=== PATIENT | male | born 1980 | race African-American/Black ===

== ENCOUNTER 2016-11-13 19:18 | Emergency (ER) | payer MEDICAID ==
[2016-11-13 20:11] VITALS: BP 139/86; PULSE 83; RESP 18; TEMP 100
[2016-11-13] MEDS ORDERED: ONDANSETRON ODT 8 MG TAB.RAPDIS PO STA (20:38)
[2016-11-13] MEDS ORDERED: DIPHENOX-ATROP STARTER PACK 8 TAB BTL PO STA (20:39)
[2016-11-13] MEDS ORDERED: DIPHENOX-ATROP 2.5-0.025 MG 1 EACH TAB PO STA (20:39)
[2016-11-13] MEDS ORDERED: ACETAMINOPHEN TAB 500 MG TAB PO STA (20:40)
--- NOTE | 2016-11-13 20:40 | ED ---
General Adult HPI - General Chief complaint: Nausea/Vomiting/Diarrhea Stated complaint: Vomiting Time Seen by Provider: 11/13/16 20:00 Source: patient, RN notes reviewed Mode of arrival: ambulatory - History of Present Illness Initial comments: This is a 36-year-old male who presents to the emergency department complaining of vomiting and diarrhea. Patient states he was nauseous all day and did have a few bouts of diarrhea however this evening he vomited times one and decided to come to the emergency department to be evaluated. Patient denies any abdominal pain. Patient denies any fever or chills. Patient denies any previous abdominal surgeries. Patient denies any chest pain difficult breathing shortness of breath. Patient denies any headache patient denies numbness weakness. Patient denies any lightheadedness dizziness or near syncopal episode. - Related Data Previous Rx's Medication Instructions Recorded Dicyclomine HCl [Bentyl] 20 mg PO QID PRN #15 tab 05/08/16 Ondansetron Odt [Zofran Odt] 4 mg PO Q6HR PRN #10 tab 11/13/16 Allergies Allergy/AdvReac Type Severity Reaction Status Date / Time No Known Allergies Allergy Verified 11/13/16 20:11 Review of Systems ROS Statement: Those systems with pertinent positive or pertinent negative responses have been documented in the HPI. ROS Other: All systems not noted in ROS Statement are negative. Past Medical History Past Medical History: No Reported History History of Any Multi-Drug Resistant Organisms: None Reported Past Surgical History: No Surgical Hx Reported Past Psychological History: No Psychological Hx Reported Smoking Status: Never smoker Past Alcohol Use History: Occasional Past Drug Use History: None Reported General Exam - General Exam Comments Initial Comments: GENERAL: Patient is well-developed and well-nourished. Patient is nontoxic and well- hydrated and is in mild distress. ENT: Neck is soft and supple. No significant lymphadenopathy is noted. Oropharynx is clear. Moist mucous membranes. Neck has full range of motion without eliciting any pain. EYES: The sclera were anicteric and conjunctiva were pink and moist. Extraocular movements were intact and pupils were equal round and reactive to light. Eyelids were unremarkable. PULMONARY: Unlabored respirations. Good breath sounds bilaterally. No audible rales rhonchi or wheezing was noted. CARDIOVASCULAR: There is a regular rate and rhythm without any murmurs gallops or rubs. ABDOMEN: Soft and nontender with normal bowel sounds. No palpable organomegaly was noted. There is no palpable pulsatile mass. SKIN: Skin is clear with no lesions or rashes and otherwise unremarkable. NEUROLOGIC: Patient is alert and oriented x3. Cranial nerves II through XII are grossly intact. Motor and sensory are also intact. Normal speech, volume and content. Symmetrical smile. MUSCULOSKELETAL: Normal extremities with adequate strength and full range of motion. No lower extremity swelling or edema. No calf tenderness. LYMPHATICS: No significant lymphadenopathy is noted PSYCHIATRIC: Normal psychiatric evaluation. Normal interpersonal interactions appears functionally intact in deals appropriately with others. No signs of depression. Course Vital Signs 11/13/16 20:08 Temperature 100 F H Pulse Rate 83 Respiratory 18 Rate Blood Pressure 139/86 O2 Sat by Pulse 98 Oximetry Disposition Clinical Impression: Gastroenteritis Disposition: HOME SELF-CARE Condition: Good Instructions: Gastroenteritis (ED) Prescriptions: Ondansetron Odt [Zofran Odt] 4 mg PO Q6HR PRN #10 tab PRN Reason: Nausea And Vomiting Referrals: Jewel Edward MD [Primary Care Provider] - 1-2 days Time of Disposition: 20:42
[2016-11-13] MEDS ORDERED: ONDANSETRON 4 MG ODT STARTER PACK 2 TAB BTL PO ONE (20:45)
== END 2016-11-13 21:18 | disposition home or self-care (01) ==
LOC: EC 19:18
DX: K52.9 Noninfective gastroenteritis and colitis, unspecified (principal)
CPT/HCPCS: 99283; S0119

== ENCOUNTER 2017-12-06 09:11 | Emergency (ER) | payer MEDICAID, OTHER ==
[2017-12-06 09:14] VITALS: BP 175/81; PULSE 75; RESP 16; TEMP 98.2
--- NOTE | 2017-12-06 09:28 | ED ---
General Adult HPI - General Chief complaint: Recheck/Abnormal Lab/Rx Stated complaint: hands numb and tingling Time Seen by Provider: 12/06/17 09:16 Source: patient Mode of arrival: ambulatory Limitations: no limitations - History of Present Illness Initial comments: This is a 37 year old male who presents with bilateral hand and wrist tingling that began today. The patient states he woke up with both hands red, swollen and tingling. The redness and swelling resolved after showering. However, the patient states that his wrists make a "popping" noise when he bends them, and the tingling sensation recurs. He denies pain or other symptoms at rest, and has never had these symptoms in the past. Patient states that he just switched physicians at work. 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 - Related Data Previous Rx's Medication Instructions Recorded predniSONE 50 mg PO DAILY #5 tab 12/06/17 Allergies Allergy/AdvReac Type Severity Reaction Status Date / Time No Known Allergies Allergy Verified 12/06/17 09:18 Review of Systems ROS Statement: Those systems with pertinent positive or pertinent negative responses have been documented in the HPI. ROS Other: All systems not noted in ROS Statement are negative. Past Medical History Past Medical History: No Reported History History of Any Multi-Drug Resistant Organisms: None Reported Past Surgical History: No Surgical Hx Reported Past Psychological History: No Psychological Hx Reported Smoking Status: Never smoker Past Alcohol Use History: Occasional Past Drug Use History: None Reported General Exam Limitations: no limitations General appearance: alert, in no apparent distress Head exam: Present: atraumatic, normocephalic, normal inspection Respiratory exam: Present: normal lung sounds bilaterally. Absent: respiratory distress, wheezes, rales, rhonchi, stridor Cardiovascular Exam: Present: regular rate, normal rhythm, normal heart sounds. Absent: systolic murmur, diastolic murmur, rubs, gallop, clicks Extremities exam: Present: full ROM, other (No edema is noted in bilateral wrists. Positive Tinel sign bilaterally. Negative Phalen. Patient reports subjective paresthesias to digits one through 3) Neurological exam: Present: alert, oriented X3, CN II-XII intact Psychiatric exam: Present: normal affect, normal mood Skin exam: Present: warm, dry, intact, normal color. Absent: rash Course Vital Signs 12/06/17 09:12 Temperature 98.2 F Pulse Rate 75 Respiratory 16 Rate Blood Pressure 175/81 O2 Sat by Pulse 100 Oximetry Medical Decision Making - Medical Decision Making 29-year-old male present emergency from for bilateral hand pain, numbness and tingling. Patient symptoms are consistent with carpal tunnel. Patient recently switched jobs at work most likely causing his symptoms. Patient states he does have splints at home and which she'll wear. Patient was given a short course of steroids as he states he's been taking ibuprofen daily. Patient will follow-up with orthopedics if no improvement return for any worsening symptoms. Disposition Clinical Impression: Carpal tunnel syndrome Disposition: HOME SELF-CARE Condition: Stable Instructions: Cubital Tunnel Syndrome (ED), Paresthesia (ED) Additional Instructions: Please return to the Emergency Department if symptoms worsen or any other concerns. Prescriptions: predniSONE 50 mg PO DAILY #5 tab Referrals: None,Stated [Primary Care Provider] - 1-2 days Ketan Choudhury MD [STAFF PHYSICIAN] - 1-2 days Time of Disposition: 09:40
== END 2017-12-06 09:45 | disposition home or self-care (01) ==
LOC: EC 09:11
DX: G56.03 Carpal tunnel syndrome, bilateral upper limbs (principal)
CPT/HCPCS: 99283

== ENCOUNTER 2017-12-23 05:50 | Emergency (ER) | payer SELFPAY ==
[2017-12-23 05:59] VITALS: BP 159/93; PULSE 76; RESP 16; TEMP 97.6
[2017-12-23] MEDS ORDERED: KETOROLAC 60 MG/2 ML VIAL IM STA (06:10)
--- NOTE | 2017-12-23 06:16 | ED ---
General Adult HPI - General Chief complaint: Extremity Problem,Nontraumatic Stated complaint: hand numbness Time Seen by Provider: 12/23/17 06:00 Source: patient, RN notes reviewed Mode of arrival: ambulatory Limitations: no limitations - History of Present Illness Initial comments: This is a 37-year-old male who presents emergency department for the second time complaining of numbness and weakness in his hands bilaterally. Patient states she's always had a little bit of this but now that he started a job where he has a lot of repetitive motion with his hands is gotten considerably worse. Patient states last time he was here he was given some steroids and that seemed to improve his symptoms. 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 Patient states he's got tingling in his middle digit in both hands. Patient also states he has a difficult time gripping things. - Related Data Previous Rx's Medication Instructions Recorded predniSONE 50 mg PO DAILY #5 tab 12/06/17 Ibuprofen [Motrin] 800 mg PO Q6HR #20 tab 12/23/17 Allergies Allergy/AdvReac Type Severity Reaction Status Date / Time No Known Allergies Allergy Verified 12/23/17 05:59 Review of Systems ROS Statement: Those systems with pertinent positive or pertinent negative responses have been documented in the HPI. ROS Other: All systems not noted in ROS Statement are negative. Past Medical History Past Medical History: No Reported History Additional Past Medical History / Comment(s): carpal tunnel History of Any Multi-Drug Resistant Organisms: None Reported Past Surgical History: No Surgical Hx Reported Past Psychological History: No Psychological Hx Reported Smoking Status: Never smoker Past Alcohol Use History: Occasional Past Drug Use History: None Reported General Exam Limitations: no limitations Course Vital Signs 12/23/17 05:56 Temperature 97.6 F Pulse Rate 76 Respiratory 16 Rate Blood Pressure 159/93 O2 Sat by Pulse 100 Oximetry Disposition Clinical Impression: Carpal tunnel syndrome Disposition: HOME SELF-CARE Condition: Good Instructions: Paresthesia (ED) Prescriptions: Ibuprofen [Motrin] 800 mg PO Q6HR #20 tab Referrals: Ketan Choudhury MD [STAFF PHYSICIAN] - 1-2 days Time of Disposition: 06:15
--- NOTE | 2017-12-25 07:38 | CDI ---
Documentation Clarification OP Dear Nicholas BATES MD Please do addendum to ED report for Physical exam and MDM. Thank you, Pita Calderon Shearing Supervisor If you have any question, Please contact inspection manager at [phone] [facility]
== END 2017-12-23 06:28 | disposition home or self-care (01) ==
LOC: EC 05:50
DX: G56.03 Carpal tunnel syndrome, bilateral upper limbs (principal)
CPT/HCPCS: 99283; 96372; J1885

== ENCOUNTER 2018-04-07 05:44 | Emergency (ER) | payer OTHER ==
[2018-04-07] MEDS ORDERED: hydrALAZINE HCL 20 MG/ML 1 ML VIAL IVP STA (05:58)
--- NOTE | 2018-04-07 06:01 | ED ---
General Adult HPI - General Source: patient, RN notes reviewed Mode of arrival: ambulatory Limitations: no limitations <Nicholas Cesar - Last Filed: 04/07/18 06:56> <Gunnar Vasquez - Last Filed: 04/07/18 08:38> - General Chief complaint: Weakness Stated complaint: Fever Time Seen by Provider: 04/07/18 05:45 - History of Present Illness Initial comments: This is a 37-year-old male who presents emergency Department stating all weekend he is filled week. Patient states is mostly time lying in bed. Patient states he had some crusting to both eyes. Patient states he had no pain denies any chest pain difficulty breathing shortness of breath or cough. Patient denies any fever but states he did break out in a sweat a few times and was chilled on multiple occasions. Patient denies any abdominal pain. Patient denies any nausea vomiting or diarrhea. Patient states he has no history of high blood pressure. Patient denies any headache patient denies any numbness or focal weakness. Patient denies any lightheadedness dizziness or near syncopal episode. Patient patient's main complaint is he just doesn't feel good and he is here to get checked out he denies any pain at all (Nicholas Cesar) - Related Data Home Medications Medication Instructions Recorded Confirmed Ibuprofen [Motrin] 800 mg PO Q8H PRN 04/07/18 04/07/18 diphenhydrAMINE HCL [Benadryl] 25 mg PO HS PRN 04/07/18 04/07/18 Previous Rx's Medication Instructions Recorded Amoxicillin/Potassium Clav 1 tab PO Q12HR #20 tab 04/07/18 [Augmentin 875-125 Tablet] Loratadine [Claritin] 10 mg PO DAILY #30 tab 04/07/18 Allergies Allergy/AdvReac Type Severity Reaction Status Date / Time No Known Allergies Allergy Verified 04/07/18 07:59 Review of Systems ROS Other: All systems not noted in ROS Statement are negative. <Nicholas Cesar - Last Filed: 04/07/18 06:56> ROS Other: All systems not noted in ROS Statement are negative. <Gunnar Vasquez - Last Filed: 04/07/18 08:38> ROS Statement: Those systems with pertinent positive or pertinent negative responses have been documented in the HPI. Past Medical History Past Medical History: No Reported History Additional Past Medical History / Comment(s): carpal tunnel History of Any Multi-Drug Resistant Organisms: None Reported Past Surgical History: No Surgical Hx Reported Past Psychological History: No Psychological Hx Reported Smoking Status: Never smoker Past Alcohol Use History: None Reported Past Drug Use History: None Reported <Nicholas Cesar - Last Filed: 04/07/18 06:56> General Exam Limitations: no limitations <Nicholas Cesar - Last Filed: 04/07/18 06:56> <Gunnar Vasquez - Last Filed: 04/07/18 08:38> - General Exam Comments Initial Comments: GENERAL: Patient is well-developed and well-nourished. Patient is nontoxic and well- hydrated and is in mild distress. ENT: Neck is soft and supple. No significant lymphadenopathy is noted. Oropharynx is clear. Moist mucous membranes. Neck has full range of motion without eliciting any pain. EYES: The sclera were anicteric and conjunctiva were pink and moist. Extraocular movements were intact and pupils were equal round and reactive to light. Eyelids were unremarkable. PULMONARY: Slight expiratory wheeze on the right lung CARDIOVASCULAR: There is a regular rate and rhythm without any murmurs gallops or rubs. ABDOMEN: Soft and nontender with normal bowel sounds. No palpable organomegaly was noted. There is no palpable pulsatile mass. SKIN: Skin is clear with no lesions or rashes and otherwise unremarkable. NEUROLOGIC: Patient is alert and oriented x3. Cranial nerves II through XII are grossly intact. Motor and sensory are also intact. Normal speech, volume and content. Symmetrical smile. MUSCULOSKELETAL: Normal extremities with adequate strength and full range of motion. No lower extremity swelling or edema. No calf tenderness. LYMPHATICS: No significant lymphadenopathy is noted PSYCHIATRIC: Normal psychiatric evaluation. Normal interpersonal interactions appears functionally intact in deals appropriately with others. No signs of depression. No signs of anxiety. (Nicholas Cesar) Vital Signs 04/07/18 04/07/18 04/07/18 05:48 06:10 07:24 Temperature 98.2 F Pulse Rate 84 81 83 Respiratory 18 18 18 Rate Blood Pressure 161/115 144/68 161/77 O2 Sat by Pulse 97 100 97 Oximetry 04/07/18 08:21 Temperature Pulse Rate 83 Respiratory 18 Rate Blood Pressure 156/88 O2 Sat by Pulse 98 Oximetry EKG Findings - EKG Comments: EKG Findings:: EKG: Normal sinus rhythm rate of 78, MD interval 146, QRS duration 96, QTC 453 <Gunnar Vasquez - Last Filed: 04/07/18 08:38> Medical Decision Making - Lab Data Result diagrams: 04/07/18 06:05 04/07/18 06:05 <Nicholas Cesar - Last Filed: 04/07/18 06:56> - Lab Data Result diagrams: 04/07/18 06:05 04/07/18 06:05 <Gunnar Vasquez - Last Filed: 04/07/18 08:38> - Medical Decision Making EKG shows normal sinus rhythm at 70 bpm MD interval is 146 QRS is 88 QT interval 44 QTC is 460. Patient's EKG shows no ST segment elevation or depression or T wave abnormalities are noted. Dr. Vasquez will be taking over the care of this patient at 7 AM (Nicholas Cesar) 37-year-old male presenting for evaluation of generalized weakness, subjective chills, he did have some rhinorrhea and postnasal drip. Patient initially felt this was just his sinuses however he states he continued to feel well over the weekend. His presenting for evaluation today. Vital signs are stable, patient is overall well-appearing. Workup is obtained, chest x-ray negative for any focal pneumonia or acute findings. Normal CBC, d-dimer is 0.37. Troponin 0.014. This is technically within the normal range however it is not 0 as would be expected. This lab abnormality is reviewed with the patient. Patient does not have insurance and he does not want any further testing. He declines observation for serial cardiac enzymes, echo and cardiology consultation. He has not had any chest pain or dyspnea. He will follow-up on this as an outpatient. He prefers to just be treated for his sinus symptoms. (Gunnar Vasquez) - Lab Data Lab Results 04/07/18 04/07/18 04/07/18 Range/Units 06:05 06:05 06:05 WBC 4.7 (3.8-10.6) k/uL RBC 5.26 (4.30-5.90) m/uL Hgb 14.9 (13.0-17.5) gm/dL Hct 44.6 (39.0-53.0) % MCV 84.8 (80.0-100.0) fL MCH 28.3 (25.0-35.0) pg MCHC 33.4 (31.0-37.0) g/dL RDW 13.3 (11.5-15.5) % Plt Count 191 (150-450) k/uL Neutrophils % (Manual) 39 % Lymphocytes % (Manual) 46 % Monocytes % (Manual) 14 % Eosinophils % (Manual) 2 % Neutrophils # (Manual) 1.83 (1.3-7.7) k/uL Lymphocytes # (Manual) 2.16 (1.0-4.8) k/uL Monocytes # (Manual) 0.66 (0-1.0) k/uL Eosinophils # (Manual) 0.09 (0-0.7) k/uL Nucleated RBCs 0 (0-0) /100 WBC RBC Morphology Normal D-Dimer (<0.60) mg/L FEU Sodium 142 (137-145) mmol/L Potassium 3.9 (3.5-5.1) mmol/L Chloride 105 (98-107) mmol/L Carbon Dioxide 27 (22-30) mmol/L Anion Gap 10 mmol/L BUN 19 (9-20) mg/dL Creatinine 1.20 (0.66-1.25) mg/dL Est GFR (CKD-EPI)AfAm 88 (>60 ml/min/1.73 sqM) Est GFR (CKD-EPI)NonAf 76 (>60 ml/min/1.73 sqM) Glucose 105 H (74-99) mg/dL Calcium 9.1 (8.4-10.2) mg/dL Total Bilirubin 0.5 (0.2-1.3) mg/dL AST 45 (17-59) U/L ALT 60 (21-72) U/L Alkaline Phosphatase 53 (38-126) U/L Troponin I 0.014 (0.000-0.034) ng/mL Total Protein 7.1 (6.3-8.2) g/dL Albumin 4.3 (3.5-5.0) g/dL 04/07/18 Range/Units 06:05 WBC (3.8-10.6) k/uL RBC (4.30-5.90) m/uL Hgb (13.0-17.5) gm/dL Hct (39.0-53.0) % MCV (80.0-100.0) fL MCH (25.0-35.0) pg MCHC (31.0-37.0) g/dL RDW (11.5-15.5) % Plt Count (150-450) k/uL Neutrophils % (Manual) % Lymphocytes % (Manual) % Monocytes % (Manual) % Eosinophils % (Manual) % Neutrophils # (Manual) (1.3-7.7) k/uL Lymphocytes # (Manual) (1.0-4.8) k/uL Monocytes # (Manual) (0-1.0) k/uL Eosinophils # (Manual) (0-0.7) k/uL Nucleated RBCs (0-0) /100 WBC RBC Morphology D-Dimer 0.37 (<0.60) mg/L FEU Sodium (137-145) mmol/L Potassium (3.5-5.1) mmol/L Chloride (98-107) mmol/L Carbon Dioxide (22-30) mmol/L Anion Gap mmol/L BUN (9-20) mg/dL Creatinine (0.66-1.25) mg/dL Est GFR (CKD-EPI)AfAm (>60 ml/min/1.73 sqM) Est GFR (CKD-EPI)NonAf (>60 ml/min/1.73 sqM) Glucose (74-99) mg/dL Calcium (8.4-10.2) mg/dL Total Bilirubin (0.2-1.3) mg/dL AST (17-59) U/L ALT (21-72) U/L Alkaline Phosphatase (38-126) U/L Troponin I (0.000-0.034) ng/mL Total Protein (6.3-8.2) g/dL Albumin (3.5-5.0) g/dL Disposition <Nicholas Cesar - Last Filed: 04/07/18 06:56> Is patient prescribed a controlled substance at d/c from ED?: No Time of Disposition: 08:38 <Gunnar Vasquez - Last Filed: 04/07/18 08:38> Clinical Impression: Sinusitis Disposition: HOME SELF-CARE Condition: Good Instructions: Sinusitis (ED) Prescriptions: Amoxicillin/Potassium Clav [Augmentin 875-125 Tablet] 1 tab PO Q12HR #20 tab Loratadine [Claritin] 10 mg PO DAILY #30 tab Referrals: Jewel Edward MD [Primary Care Provider] - 1-2 days
[2018-04-07 06:27] LABS: HCT 44.6 % (39.0-53.0); HGB 14.9 gm/dL (13.0-17.5); MCH 28.3 pg (25.0-35.0); MCHC 33.4 g/dL (31.0-37.0); MCV 84.8 fL (80.0-100.0); Mean Platelet Volume 7.2; Platelet Count 191 k/uL (150-450); RBC 5.26 m/uL (4.30-5.90); RDW 13.3 % (11.5-15.5); WBC 4.7 k/uL (3.8-10.6)
[2018-04-07 06:29] LABS: Albumin 4.3 g/dL (3.5-5.0); Calcium 9.1 mg/dL (8.4-10.2); Potassium 3.9 mmol/L (3.5-5.1); Total Bilirubin 0.5 mg/dL (0.2-1.3); Total Protein 7.1 g/dL (6.3-8.2)
[2018-04-07 06:46] LABS: Eosinophils # (M) 0.09 k/uL (0-0.7); Lymphocytes # (M) 2.16 k/uL (1.0-4.8); Monocytes # (M) 0.66 k/uL (0-1.0); Neutrophils # (M) 1.83 k/uL (1.3-7.7); Neutrophils % (M) 39 %; Nucleated Red Blood Cells 0 /100 WBC (0-0); Total Cells Counted 200
--- NOTE | 2018-04-07 07:08 | XR ---
EXAM: XR Chest, 2 Views CLINICAL HISTORY: ITS.REASON XR Reason: Difficulty breathing TECHNIQUE: Frontal and lateral views of the chest. COMPARISON: None. FINDINGS: Lungs: Unremarkable. The lungs are clear. Pleural space: Unremarkable. No pneumothorax. Heart: Unremarkable. No cardiomegaly. Mediastinum: Unremarkable. Bones/joints: Unremarkable. IMPRESSION: Normal chest x-rays.
[2018-04-07 07:24] VITALS: PULSE 83
[2018-04-07 08:48] VITALS: BP 158/94; RESP 16; TEMP 98.1
== END 2018-04-07 08:50 | disposition home or self-care (01) ==
LOC: EC 05:44
DX: J32.9 Chronic sinusitis, unspecified (principal); Z53.29 Procedure and treatment not carried out because of patient's decision for other reasons; Z53.8 Procedure and treatment not carried out for other reasons
CPT/HCPCS: 36415; 71046; 80053; 84484; 85025; 85379; 93005; 99285

== ENCOUNTER 2018-04-08 10:34 | Emergency (ER) | payer OTHER ==
[2018-04-08 10:38] VITALS: BP 160/99; PULSE 86; RESP 16; TEMP 98.5
[2018-04-08] MEDS ORDERED: FAMOTIDINE 20 MG TAB PO STA (10:56)
[2018-04-08] MEDS ORDERED: predniSONE 20 MG TAB PO STA (10:56)
[2018-04-08] MEDS ORDERED: diphenhydrAMINE 50 MG CAP PO STA (10:56)
--- NOTE | 2018-04-08 11:05 | ED ---
Allergic Reaction HPI - General Chief complaint: Allergic Reaction Stated complaint: Med Reaction Time Seen by Provider: 04/08/18 10:48 Source: patient Mode of arrival: ambulatory Limitations: no limitations - History of Present Illness Initial Comments: The patient is a 37-year-old male who presents with a chief complaint of an ALLERGIC reaction. The patient was started on Augmentin yesterday for a sinus infection. The patient states that after taking his first dose, he noticed hives and itching on his hands. The patient states he has never had this medication before. The patient thinks that his symptoms are secondary to ALLERGIC reaction. There are no aggravating or alleviating factors. The patient states that he is not having any trouble breathing or swallowing, he does not feel like his lips or tongue or swelling. Patient occasionally smokes marijuana, he denies any other drug use or drinking. - Related Data Home Medications Medication Instructions Recorded Confirmed Ibuprofen [Motrin] 800 mg PO Q8H PRN 04/07/18 04/08/18 diphenhydrAMINE HCL [Benadryl] 25 mg PO HS PRN 04/07/18 04/08/18 Previous Rx's Medication Instructions Recorded Amoxicillin/Potassium Clav 1 tab PO Q12HR #20 tab 04/07/18 [Augmentin 875-125 Tablet] Loratadine [Claritin] 10 mg PO DAILY #30 tab 04/07/18 Azithromycin [Zithromax] 500 mg PO DAILY #6 tab 04/08/18 EPINEPHrine [Epipen 2-Anthony] 0.3 mg IJ ONCE PRN #2 auto.injct 04/08/18 Famotidine [Pepcid] 20 mg PO DAILY #5 tablet 04/08/18 Fluticasone Nasal [place] [Flonase 2 spr EA NOSTRIL DAILY #1 bottle 04/08/18 Nasal [place]] diphenhydrAMINE HCL [Benadryl] 25 mg PO Q6H PRN #20 tab 04/08/18 predniSONE 60 mg PO DAILY #6 tab 04/08/18 Allergies Allergy/AdvReac Type Severity Reaction Status Date / Time No Known Allergies Allergy Verified 04/08/18 10:53 Review of Systems ROS Statement: Those systems with pertinent positive or pertinent negative responses have been documented in the HPI. ROS Other: All systems not noted in ROS Statement are negative. Skin: Reports: rash, pruritus Past Medical History Past Medical History: No Reported History Additional Past Medical History / Comment(s): carpal tunnel History of Any Multi-Drug Resistant Organisms: None Reported Past Surgical History: No Surgical Hx Reported Past Psychological History: No Psychological Hx Reported Smoking Status: Never smoker Past Alcohol Use History: None Reported Past Drug Use History: None Reported General Exam Limitations: no limitations General appearance: alert, in no apparent distress Head exam: Present: atraumatic, normocephalic Eye exam: Present: normal appearance ENT exam: Present: normal exam, normal oropharynx, mucous membranes moist Neck exam: Present: normal inspection Respiratory exam: Present: normal lung sounds bilaterally. Absent: respiratory distress, wheezes Cardiovascular Exam: Present: regular rate, normal rhythm. Absent: bradycardia , tachycardia GI/Abdominal exam: Present: soft. Absent: distended, tenderness Rectal exam: Present: deferred Extremities exam: Present: normal inspection Back exam: Present: normal inspection Neurological exam: Present: alert, oriented X3 Psychiatric exam: Present: normal affect, normal mood Skin exam: Present: warm, dry, intact, rash (Patient has hives limited to his fingertips and distal hand bilaterally. ) Course Vital Signs 04/08/18 10:36 Temperature 98.5 F Pulse Rate 86 Respiratory 16 Rate Blood Pressure 160/99 O2 Sat by Pulse 94 L Oximetry Medical Decision Making - Medical Decision Making Patient presents with chief complaint of hives and urticarial rash on his hands and fingers. Patient recently started Augmentin but she has never had before. On initial evaluation, vitals are stable, patient appears well. He is not in any respiratory distress. There is no tongue, face, or lip swelling. Patient was given Pepcid, Benadryl, and prednisone. The patient will be observed for 2 hours. Augmentin was changed to azithromycin for treatment of a sinus infection. Patient was prescribed Flonase, Pepcid, Benadryl, and epi pens. 12:03 PM After an hour of evaluation, patient states his symptoms are improving. Examination of the finger shows improvement of his symptoms. I reviewed the patient's medications with him, he understands their use. Patient was instructed to follow up with primary care 1-2 days, return to the emergency department if symptoms worsen or change. Disposition Clinical Impression: Allergic reaction Disposition: HOME SELF-CARE Condition: Good Instructions: Anaphylaxis (ED) Prescriptions: Azithromycin [Zithromax] 500 mg PO DAILY #6 tab diphenhydrAMINE HCL [Benadryl] 25 mg PO Q6H PRN #20 tab PRN Reason: Itching EPINEPHrine [Epipen 2-Anthony] 0.3 mg IJ ONCE PRN #2 auto.injct PRN Reason: Allergic Reaction Famotidine [Pepcid] 20 mg PO DAILY #5 tablet Fluticasone Nasal [place] [Flonase Nasal [place]] 2 spr EA NOSTRIL DAILY #1 bottle predniSONE 60 mg PO DAILY #6 tab Is patient prescribed a controlled substance at d/c from ED?: No Referrals: Jewel Edward MD [Primary Care Provider] - 1-2 days
== END 2018-04-08 12:26 | disposition home or self-care (01) ==
LOC: EC 10:34
DX: L50.0 Allergic urticaria (principal); T36.0X5A Adverse effect of penicillins, initial encounter
CPT/HCPCS: 99282; J7512

== ENCOUNTER 2018-07-07 04:48 | Emergency (ER) | payer OTHER ==
[2018-07-07 04:55] VITALS: TEMP 98.2
--- NOTE | 2018-07-07 05:23 | XR ---
EXAMINATION TYPE: XR chest 2V DATE OF EXAM: 07/07/2018 COMPARISON: 04/07/2018 HISTORY: Congestion TECHNIQUE: Frontal and lateral views of the chest are obtained. FINDINGS: Heart and mediastinum are normal. Lungs are clear. Diaphragm is normal. Bony thorax appear s normal. IMPRESSION: Normal chest. No change.
--- NOTE | 2018-07-07 05:37 | ED ---
URI HPI - General Chief Complaint: Upper Respiratory Infection Stated Complaint: CONGESTION Time Seen by Provider: 07/07/18 04:57 Source: patient Mode of arrival: ambulatory Limitations: no limitations - History of Present Illness Initial Comments: There is a 37-year-old -[place] male with no past medical history really doesn't see a primary care physician who presents to ED today for evaluation of nasal congestion, drainage of his throat and a feeling of throat tightness. Patient reports that he's had some nasal congestion and drainage for couple of days. He reports that he's taken some asuu-owr-stpirjw medications in an improved however he reports that the moxp-jap-oeutiuu medications made him feel like all the secretions dried up and that there is just something stuck in his throat. He reports that while laying down tonight he felt as though his throat was tight and he can't cough up what he needed to cough up. This made him kind of nervous so he came to the ER for evaluation. She denies any previous cardiac or pulmonary history. He denies having seasonal ALLERGIES though he does state that he has taken Zyrtec in the past. He denies any history of asthma or COPD. - Related Data Previous Rx's Medication Instructions Recorded Fluticasone Nasal [place] [Flonase 1 spray EA NOSTRIL DAILY #1 bottle 07/07/18 Nasal [place]] Allergies Allergy/AdvReac Type Severity Reaction Status Date / Time Penicillins Allergy Itching Verified 07/07/18 04:55 Review of Systems ROS Statement: Those systems with pertinent positive or pertinent negative responses have been documented in the HPI. ROS Other: All systems not noted in ROS Statement are negative. Past Medical History Past Medical History: No Reported History Additional Past Medical History / Comment(s): carpal tunnel History of Any Multi-Drug Resistant Organisms: None Reported Past Surgical History: No Surgical Hx Reported Past Psychological History: No Psychological Hx Reported Smoking Status: Former smoker Past Alcohol Use History: None Reported Past Drug Use History: None Reported General Exam - General Exam Comments Initial Comments: GENERAL: Patient is well-developed and well-nourished. Patient is nontoxic and well- hydrated and is in no distress. HENT: Normocephalic, Atraumatic. TMs are erythematous bilaterally but there is no sign of infection, there is significant nasal polyps as well as postnasal drip. There is no angioedema or swelling of the throat. No cervical lymphadenopathy. EYES: The sclera were anicteric and conjunctiva were pink and moist. Extraocular movements were intact and pupils were equal round and reactive to light. Eyelids were unremarkable. PULMONARY: Unlabored respirations. Good breath sounds bilaterally. No audible rales rhonchi or wheezing was noted. CARDIOVASCULAR: There is a regular rate and rhythm without any murmurs gallops or rubs. ABDOMEN: Soft and nontender with normal bowel sounds. SKIN: Skin is clear with no lesions or rashes and otherwise unremarkable. NEUROLOGIC: Patient is alert and oriented x3. Cranial nerves II through XII are grossly intact. Motor and sensory are also intact. Normal speech, volume and content. Symmetrical smile. MUSCULOSKELETAL: Normal extremities with adequate strength and full range of motion. No lower extremity swelling or edema. No calf tenderness. LYMPHATICS: No significant lymphadenopathy is noted PSYCHIATRIC: Normal psychiatric evaluation. Limitations: no limitations Limitations: no limitations Course Vital Signs 07/07/18 07/07/18 04:51 06:13 Temperature 98.2 F Pulse Rate 77 66 Respiratory 20 16 Rate Blood Pressure 166/102 164/100 O2 Sat by Pulse 99 99 Oximetry Medical Decision Making - Medical Decision Making She was seen and evaluated, vital signs were reviewed, noted the vital signs were for hypertension, this was discussed with the patient he was advised to follow-up with a primary care physician for reevaluation. with upper respiratory like symptoms, nasal drainage, feeling as though the nasal drainage was stuck in his throat today. EKG and CXR ordered CXR with no acute findings EKG Advised patient to avoid OTC decongestants as they can cause palpitations and worsen HTN. Advised to start using Flonase and Zyrtec - EKG Data EKG Comments: EKG obtained at 6:02 AM, rate is 71, rhythm is sinus, there is a left axis deviation, normal intervals, TN 142, QRS 108, QTC 445. There is no acute ST elevations or depressions or evidence of acute ischemia or infarction. Disposition Clinical Impression: URI (upper respiratory infection), HTN (hypertension) Disposition: HOME SELF-CARE Instructions: Upper Respiratory Infection (ED) Additional Instructions: Need to follow up with her primary care physician for discussion about your hypertension. Prescriptions: Fluticasone Nasal [place] [Flonase Nasal [place]] 1 spray EA NOSTRIL DAILY #1 bottle Is patient prescribed a controlled substance at d/c from ED?: No Referrals: None,Stated [Primary Care Provider] - 1-2 days [facility] [NON[facility]] - 1-2 days Hira Lopez MD [REFERRING] - 1-2 days Time of Disposition: 06:15
[2018-07-07 06:15] VITALS: BP 164/100; PULSE 66; RESP 16
== END 2018-07-07 06:21 | disposition home or self-care (01) ==
LOC: EC 04:48
DX: J06.9 Acute upper respiratory infection, unspecified (principal); I10 Essential (primary) hypertension; Z87.891 Personal history of nicotine dependence; Z88.0 Allergy status to penicillin
CPT/HCPCS: 71046; 93005; 99283

== ENCOUNTER 2018-08-01 08:51 | Emergency (ER) | payer OTHER ==
[2018-08-01 09:22] VITALS: RESP 18; TEMP 98.1
[2018-08-01] MEDS ORDERED: PROPARACAINE 0.5% OPHTH DROPS 15 ML BTL LEFT EYE STA (09:40)
--- NOTE | 2018-08-01 09:45 | ED ---
Eye Problem HPI - General Chief complaint: Eye Problems Stated complaint: FB in eye Time Seen by Provider: 08/01/18 09:40 Source: patient, RN notes reviewed Mode of arrival: ambulatory Limitations: no limitations - History of Present Illness Initial comments: 37-year-old male presents emergency Department chief complaint of left eye irritation. Patient states he was cutting the grass on Saturday and states a piece of grass got into his eye. He states that he removed it but states that now has been red and irritated. Patient states he has essentially no change in vision states at times a little hazy but usually associated with tearing. Patient states he cannot her on his last tetanus was. Denies any pain with ocular movement. Patient states that has noticed a red reason no crusting or drainage in the morning other than tearing. - Related Data Home Medications Medication Instructions Recorded Confirmed diphenhydrAMINE [Benadryl] 50 mg PO DAILY PRN 08/01/18 08/01/18 Allergies Allergy/AdvReac Type Severity Reaction Status Date / Time Penicillins Allergy Itching Verified 08/01/18 09:46 Review of Systems ROS Statement: Those systems with pertinent positive or pertinent negative responses have been documented in the HPI. ROS Other: All systems not noted in ROS Statement are negative. Past Medical History Past Medical History: No Reported History Additional Past Medical History / Comment(s): carpal tunnel History of Any Multi-Drug Resistant Organisms: None Reported Past Surgical History: No Surgical Hx Reported Past Psychological History: No Psychological Hx Reported Smoking Status: Former smoker Past Alcohol Use History: None Reported Past Drug Use History: None Reported General Exam Limitations: no limitations General appearance: alert, in no apparent distress Head exam: Present: atraumatic, normocephalic, normal inspection Eye exam: Present: PERRL, EOMI, conjunctival injection (Moderate left). Absent : normal appearance, scleral icterus, periorbital swelling ENT exam: Present: normal exam, normal oropharynx, mucous membranes moist, TM's normal bilaterally Neck exam: Present: normal inspection, full ROM. Absent: tenderness, meningismus, lymphadenopathy Respiratory exam: Present: normal lung sounds bilaterally. Absent: respiratory distress, wheezes, rales, rhonchi, stridor Cardiovascular Exam: Present: regular rate, normal rhythm, normal heart sounds. Absent: systolic murmur, diastolic murmur, rubs, gallop, clicks Course Vital Signs 10/12/18 09:20 Temperature 98.1 F Pulse Rate 78 Respiratory 18 Rate Blood Pressure 159/97 O2 Sat by Pulse 100 Oximetry Medical Decision Making - Medical Decision Making 29-year-old male presented for left eye irritation. Patient's eye was stained with dye and Wood's lamp were used there is no corneal uptake noted. Patient does have some irritation to his sclera. Patient had normal pressures of the side compared to the right 18 the left 20 and the right. Patient we started on tobramycin and will follow-up with ophthalmology. Return parameters were discussed. Disposition Clinical Impression: Abrasion of sclera of left eye Disposition: HOME SELF-CARE Condition: Stable Instructions: Eye Foreign Body (ED) Additional Instructions: Please return to the Emergency Department if symptoms worsen or any other concerns. Is patient prescribed a controlled substance at d/c from ED?: No Referrals: Jewel Edward MD [Primary Care Provider] - 1-2 days Adelso Blackwell MD [STAFF PHYSICIAN] - 1-2 days Time of Disposition: 09:58
[2018-08-01] MEDS ORDERED: TOBRAMYCIN 0.3% OPHTH DROPS 5 ML BTL LEFT EYE STA (09:56)
[2018-08-01] MEDS ORDERED: DIPH,PERTUS(ACELL)TETVAC-LF 0.5 ML VIAL IM ONE (09:58)
[2018-08-01 11:10] VITALS: BP 122/78; PULSE 77
== END 2018-08-01 11:10 | disposition home or self-care (01) ==
LOC: EC 08:51
DX: S05.02XA Injury of conjunctiva and corneal abrasion without foreign body, left eye, initial encounter (principal); Z87.891 Personal history of nicotine dependence; Z23 Encounter for immunization; Z88.0 Allergy status to penicillin; W22.8XXA Striking against or struck by other objects, initial encounter; Y93.A6 Activity, grass drills
CPT/HCPCS: 90471; 90715; 99283

== ENCOUNTER 2019-01-08 15:16 | Emergency (ER) | payer OTHER ==
[2019-01-08 15:29] VITALS: TEMP 98.3
[2019-01-08] MEDS ORDERED: SODIUM CHLORIDE 0.9% 1,000 ML IV STA (16:05)
[2019-01-08] MEDS ORDERED: ONDANSETRON 4 MG/2 ML VIAL IVP STA (16:05)
[2019-01-08] MEDS ORDERED: KETOROLAC 30 MG/ML 1 ML VIAL IVP STA (16:05)
[2019-01-08] MEDS ORDERED: ONDANSETRON ODT 4 MG TAB PO STA (16:09)
--- NOTE | 2019-01-08 17:01 | ED ---
General Adult HPI - General Chief complaint: Nausea/Vomiting/Diarrhea Stated complaint: vomiting/diarrhea Source: patient, RN notes reviewed Mode of arrival: ambulatory Limitations: no limitations - History of Present Illness Initial comments: 38-year-old male presents to the emergency department for a chief complaint of nausea vomiting and diarrhea times one day. Patient states earlier today he had about 2 episodes of vomiting and 2 episodes of diarrhea. He denies any abdominal pain whatsoever. Patient states he wanted to be checked out. Patient denies any melena, hematochezia, hematemesis. Denies any mucus in the stool. He denies any history of diabetes. He states he otherwise feels normal. Denies fevers or chills. Denies any recent travel.Patient has no other complaints at this time including shortness of breath, chest pain, abdominal pain,headache, or visual changes. - Related Data Previous Rx's Medication Instructions Recorded Ondansetron [Zofran ODT] 4 mg PO Q8HR PRN #15 tab 01/08/19 Allergies Allergy/AdvReac Type Severity Reaction Status Date / Time Penicillins Allergy Rash/Hives Verified 01/08/19 16:18 Review of Systems ROS Statement: Those systems with pertinent positive or pertinent negative responses have been documented in the HPI. ROS Other: All systems not noted in ROS Statement are negative. Past Medical History Past Medical History: No Reported History Additional Past Medical History / Comment(s): carpal tunnel History of Any Multi-Drug Resistant Organisms: None Reported Past Surgical History: No Surgical Hx Reported Past Psychological History: No Psychological Hx Reported Smoking Status: Former smoker Past Alcohol Use History: None Reported Past Drug Use History: None Reported General Exam Limitations: no limitations General appearance: alert, in no apparent distress Head exam: Present: atraumatic, normocephalic, normal inspection Eye exam: Present: normal appearance, PERRL, EOMI. Absent: scleral icterus, conjunctival injection, periorbital swelling ENT exam: Present: normal exam, mucous membranes moist Neck exam: Present: normal inspection, full ROM. Absent: tenderness, meningismus, lymphadenopathy Respiratory exam: Present: normal lung sounds bilaterally. Absent: respiratory distress, wheezes, rales, rhonchi, stridor Cardiovascular Exam: Present: regular rate, normal rhythm, normal heart sounds. Absent: systolic murmur, diastolic murmur, rubs, gallop, clicks GI/Abdominal exam: Present: soft, normal bowel sounds. Absent: distended, tenderness (No Tenderness whatsoever on palpation of the abdomen), guarding, rebound, rigid Neurological exam: Present: alert, oriented X3, CN II-XII intact Psychiatric exam: Present: normal affect, normal mood Course Vital Signs 01/08/19 15:26 Temperature 98.3 F Pulse Rate 64 Respiratory 18 Rate Blood Pressure 169/102 O2 Sat by Pulse 99 Oximetry Medical Decision Making - Medical Decision Making 38-year-old well-appearing pleasant male presents to the emergency department for a chief complaint of nausea vomiting and diarrhea. Patient states this occurred earlier today and he had about 2 episodes of vomiting and 2 episodes of diarrhea. Patient states this has since improved and he has been able to tolerate taking pop at home. Patient is well appearing, sitting up in bed. Does not appear dehydrated clinically as mucous membranes are moist. Exam is unremarkable, no tenderness noted. I did recommend IV hydration as well as blood work however patient states he would like to try oral medications as he does not want to be poked with an IV needle. Patient was given Zofran and he was able to drink water and juice and eat Jell-O without difficulty. He is feeling much better at this time. Feeling ready to go home. Patient will follow up with primary care and return if he has any other worsening symptoms. Disposition Clinical Impression: Nausea vomiting and diarrhea Disposition: HOME SELF-CARE Condition: Good Instructions (If sedation given, give patient instructions): Acute Nausea and Vomiting (ED), Acute Diarrhea (ED) Additional Instructions: Please take Zofran as needed for nausea. Please continue to drink plenty of fluids such as Gatorade. Take small sips at a time and given her body times a day just this. Follow up with primary care in 1-2 days. Return here to the emergency department if you have any worsening symptoms. Prescriptions: Ondansetron [Zofran ODT] 4 mg PO Q8HR PRN #15 tab PRN Reason: Nausea Is patient prescribed a controlled substance at d/c from ED?: No Referrals: Jewel Edward MD [Primary Care Provider] - 1-2 days Time of Disposition: 17:05
[2019-01-08 17:05] VITALS: BP 155/95; PULSE 56; RESP 16
== END 2019-01-08 17:20 | disposition home or self-care (01) ==
LOC: EC 15:16
DX: R11.2 Nausea with vomiting, unspecified (principal); R19.7 Diarrhea, unspecified; Z87.891 Personal history of nicotine dependence; Z88.0 Allergy status to penicillin
CPT/HCPCS: 99283

== ENCOUNTER 2019-02-25 16:07 | Emergency (ER) | payer OTHER ==
[2019-02-25 16:35] VITALS: BP 150/97; PULSE 76; RESP 16; TEMP 98.4
[2019-02-25] MEDS ORDERED: TRIAMCINOLONE 0.1% CREAM 80 GM TUBE TOPICAL STA (16:50)
--- NOTE | 2019-02-25 16:52 | ED ---
Allergic Reaction HPI - General Chief complaint: Allergic Reaction Stated complaint: Itching-poss allergic reaction Time Seen by Provider: 02/25/19 16:43 Source: patient, RN notes reviewed Mode of arrival: ambulatory Limitations: no limitations - History of Present Illness Initial Comments: 38-year-old male presents emergency Department chief complaint of rash his left hand. Patient states that he was working outside pulling some bushes including some most. Patient states his [place] itch and burn. He states that he went inside rinsed it did take some Benadryl. He states he still has some areas between his fingers that are still bothersome. Patient states he wasn't sure if something bit him or be getting than anything. 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 Patient states that he make sure there was no poison gemma or any other abnormal stuff. - Related Data Previous Rx's Medication Instructions Recorded Ondansetron [Zofran ODT] 4 mg PO Q8HR PRN #15 tab 01/08/19 Allergies Allergy/AdvReac Type Severity Reaction Status Date / Time Penicillins Allergy Rash/Hives Verified 02/25/19 16:35 Review of Systems ROS Statement: Those systems with pertinent positive or pertinent negative responses have been documented in the HPI. ROS Other: All systems not noted in ROS Statement are negative. Past Medical History Past Medical History: No Reported History Additional Past Medical History / Comment(s): carpal tunnel History of Any Multi-Drug Resistant Organisms: None Reported Past Surgical History: No Surgical Hx Reported Past Psychological History: No Psychological Hx Reported Smoking Status: Former smoker Past Alcohol Use History: None Reported Past Drug Use History: None Reported General Exam Limitations: no limitations General appearance: alert, in no apparent distress Head exam: Present: atraumatic, normocephalic, normal inspection Respiratory exam: Present: normal lung sounds bilaterally. Absent: respiratory distress, wheezes, rales, rhonchi, stridor Cardiovascular Exam: Present: regular rate, normal rhythm, normal heart sounds. Absent: systolic murmur, diastolic murmur, rubs, gallop, clicks Extremities exam: Present: other (There is a small area of rash between second and third digit on the left hand, small papular bumps noted) Skin exam: Present: warm, dry, intact, normal color. Absent: rash Course Vital Signs 02/25/19 16:33 Temperature 98.4 F Pulse Rate 76 Respiratory 16 Rate Blood Pressure 150/97 O2 Sat by Pulse 99 Oximetry Medical Decision Making - Medical Decision Making 38-year-old male presented for rash. Patient contact dermatitis will be treated with Kenalog cream. Return parameters were discussed. Disposition Clinical Impression: Contact dermatitis Disposition: HOME SELF-CARE Condition: Stable Instructions (If sedation given, give patient instructions): Contact Dermatitis (ED) Additional Instructions: Please return to the Emergency Department if symptoms worsen or any other concerns. Is patient prescribed a controlled substance at d/c from ED?: No Referrals: Jewel Edward MD [Primary Care Provider] - 1-2 days Time of Disposition: 16:53
== END 2019-02-25 17:35 | disposition home or self-care (01) ==
LOC: EC 16:07
DX: L25.9 Unspecified contact dermatitis, unspecified cause (principal); Z87.891 Personal history of nicotine dependence; Z88.0 Allergy status to penicillin
CPT/HCPCS: 99283

== ENCOUNTER 2019-11-01 09:05 | Emergency (ER) | payer OTHER ==
[2019-11-01 09:11] VITALS: BP 168/108; PULSE 81; RESP 18; TEMP 97.6
--- NOTE | 2019-11-01 09:20 | ED ---
Recheck HPI - General Chief Complaint: Recheck/Abnormal Lab/Rx Stated Complaint: Flu like Symptoms Time Seen by Provider: 11/01/19 09:12 Source: patient, RN notes reviewed Mode of arrival: ambulatory Limitations: no limitations - History of Present Illness Initial Comments: 38-year-old male presents emergency Department chief complaint cough like sympto ms for last 2 weeks. Patient states that he's had persistent sinus drainage, cough primary on the morning. He has no chest pain or shortness breath currently he did admit that he had fevers and chills initially does have resolved. Patient states he was seen at the hospital approximately one week ago for ALLERGIC reaction to [id number] cough and cold medications. He is given Benadryl prednisone. States his symptoms still persist with nasal congestion, facial pressure. He said recurrent sinus issues. Patient denies any current abdominal pain, nausea vomiting diarrhea constipation. He states that is ears have been plugged he states that he had a couple episodes of dizziness which are not current. - Related Data Previous Rx's Medication Instructions Recorded Clarithromycin [Biaxin] 500 mg PO Q12HR #20 tablet 11/01/19 Allergies Allergy/AdvReac Type Severity Reaction Status Date / Time Penicillins Allergy Rash/Hives Verified 02/25/19 17:05 talc AdvReac Itching Verified 02/25/19 17:05 Review of Systems ROS Statement: Those systems with pertinent positive or pertinent negative responses have been documented in the HPI. ROS Other: All systems not noted in ROS Statement are negative. Past Medical History Past Medical History: No Reported History Additional Past Medical History / Comment(s): carpal tunnel History of Any Multi-Drug Resistant Organisms: None Reported Past Surgical History: No Surgical Hx Reported Past Psychological History: No Psychological Hx Reported Smoking Status: Former smoker Past Alcohol Use History: None Reported Past Drug Use History: None Reported General Exam Limitations: no limitations General appearance: alert, in no apparent distress Head exam: Present: atraumatic, normocephalic, normal inspection Eye exam: Present: normal appearance, PERRL, EOMI. Absent: scleral icterus, conjunctival injection, periorbital swelling ENT exam: Present: mucous membranes moist, normal external ear exam, other (Maxillary sinus tenderness). Absent: normal oropharynx (Postnasal drainage), TM's normal bilaterally (Moderate fluid noted) Neck exam: Present: normal inspection, full ROM. Absent: tenderness, meningismus, lymphadenopathy Respiratory exam: Present: normal lung sounds bilaterally. Absent: respiratory distress, wheezes, rales, rhonchi, stridor Cardiovascular Exam: Present: regular rate, normal rhythm, normal heart sounds. Absent: systolic murmur, diastolic murmur, rubs, gallop, clicks Course Vital Signs 11/01/19 09:06 Temperature 97.6 F Pulse Rate 81 Respiratory 18 Rate Blood Pressure 168/108 O2 Sat by Pulse 99 Oximetry Medical Decision Making - Medical Decision Making Patient was treated for acute sinusitis his symptoms have been present for 2 weeks with no improvement. Patient otherwise is stable for discharge vitals stable patient will follow-up with PCP and return for any worsening symptoms. Disposition Clinical Impression: Acute sinusitis Disposition: HOME SELF-CARE Condition: Stable Instructions (If sedation given, give patient instructions): Sinusitis (ED) Additional Instructions: Please return to the Emergency Department if symptoms worsen or any other concerns. Prescriptions: Clarithromycin [Biaxin] 500 mg PO Q12HR #20 tablet Is patient prescribed a controlled substance at d/c from ED?: No Referrals: Jewel Edward MD [Primary Care Provider] - 1-2 days Time of Disposition: 09:20
== END 2019-11-01 09:21 | disposition home or self-care (01) ==
LOC: EC 09:05
DX: J01.90 Acute sinusitis, unspecified (principal); Z87.891 Personal history of nicotine dependence; Z88.0 Allergy status to penicillin; Z91.048 Other nonmedicinal substance allergy status
CPT/HCPCS: 99283